=== PATIENT | male | born 1960 | race Caucasian/White ===

== ENCOUNTER 2023-06-26 09:26 | Emergency (ER) | payer MEDICARE, SELFPAY ==
[2023-06-26 09:31] VITALS: BP 152/106; PULSE 82; RESP 17; TEMP 36.4; O2SAT 98; BMI 29.3
--- NOTE | 2023-06-26 09:42 | ECG_ITS ---
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
--- NOTE | 2023-06-26 09:45 | ED.GENADUL1 ---
HPI - General Adult General Chief complaint: Urogenital-Male Stated complaint: BLOOD IN URINE Time Seen by Provider: 06/26/23 09:27 Source: patient Mode of arrival: walk-in Limitations: no limitations History of Present Illness HPI narrative: 63-year-old male presents to the Emergency Department for discoloration of urine. He has an empty feeling in his abdomen and right now doesn't have pain but he has had some pressure. His eyes were noted to be yellow. He drinks three beers on Sundays and one beer every other day. He used to drink heavily, about fifteen years ago. no fever or cough but he's been feeling weak. He does not complain of flank pain. Related Data Allergies Allergy/AdvReac Type Severity Reaction Status Date / Time shellfish derived AdvReac Severe Anaphylaxis Verified 06/26/23 09:44 Review of Systems ROS Narrative A ten point review of systems is negative except as noted above. PFSH PFSH Social History Smoking status: Current every day smoker Exam Narrative Exam Narrative: Nurses note and vital signs reviewed and patient is not hypoxic. General: The patient appears well and in no apparent distress. Patient is resting comfortably on cart. Skin: Warm, dry, no pallor noted. There is no rash noted. Head: Normocephalic, atraumatic Eye: scleral icterus present, no drainage Ears, Nose, Mouth, and Throat: oral mucosa is moist. Nares patent. Cardiovascular: Regular Rate and Rhythm Respiratory: Patient is in no distress, no accessory muscle use, lungs are clear to auscultation, no wheezing, rales or rhonchi Back: non-tender, no CVA tenderness bilaterally to percussion. GI: no tenderness to palpation, no masses appreciated. No rebound, guarding, or rigidity noted. globoid shape Musculoskeletal: The patient has no evidence of calf tenderness, no pitting edema, symmetrical pulses noted bilaterally Neurological: A&O, normal speech Psychiatric: Cooperative Constitutional Vital Signs, click to edit/add: Last Vital Signs Temp 97.6 F 06/26/23 09:31 Pulse 68 06/26/23 16:31 Resp 20 06/26/23 16:31 BP 130/72 06/26/23 16:31 Pulse Ox 98 06/26/23 16:31 O2 Del Method Room Air 06/26/23 10:26 Course Vital Signs Vital signs: Vital Signs Temperature 97.6 F 06/26/23 09:31 Pulse Rate 82 06/26/23 09:31 Respiratory Rate 17 06/26/23 09:31 Blood Pressure 152/106 H 06/26/23 09:31 Pulse Oximetry 98 06/26/23 09:31 Oxygen Delivery Method Room Air 06/26/23 09:31 Temperature 97.6 F 06/26/23 09:31 Pulse Rate 68 06/26/23 16:31 Respiratory Rate 20 06/26/23 16:31 Blood Pressure 130/72 06/26/23 16:31 Pulse Oximetry 98 06/26/23 16:31 Oxygen Delivery Method Room Air 06/26/23 10:26 Medical Decision Making MDM Narrative Medical decision making narrative: Amylase, lipase, and LFTs are elevated. Gallbladder ultrasound shows enlarged common bile duct of 9.2 mm. Gallbladder wall is slightly thickened and gallbladder is enlarged. He was given IV Invanz. I discussed the case with surgeon business operations manager who requests that the patient be transferred to facility but has the capability of ERCP. I've spoken to Jasmine, nurse practitioner for Dr. Peralta, as well as Dr. Rosario, hospitalist. They accept the patient and he stable and agreeable for transfer. Treatment diagnosis and disposition were discussed with the patient and his sister. Differential Diagnosis Differential Diagnosis: pancreatitis, hepatitis, acute cholecystitis, choledocholithiasis. Lab Data Lab results reviewed: Yes I reviewed the patient's lab results Labs: Lab Results 06/26/23 06/26/23 Range/Units 09:37 09:45 WBC 12.9 H (4.0-11.0) 10^3/uL RBC 4.66 L (4.70-6.10) 10^6/uL Hgb 14.3 (14.0-18.0) g/dL Hct 41.2 L (42.0-54.0) % MCV 88.4 (80.0-94.0) fL MCH 30.7 (25.9-34.0) pg MCHC 34.7 (29.9-35.2) g/dL RDW 14.9 (11.0-15.0) % Plt Count 490 H (150-450) 10^3/uL MPV 10.1 (9.5-13.5) fL Neut % (Auto) 72.6 (43.0-75.0) % Lymph % (Auto) 10.4 L (20.5-60.0) % [place] % (Auto) 8.4 (1.7-12.0) % Eos % (Auto) 6.5 (0.9-7.0) % Baso % (Auto) 1.2 (0.2-2.0) % Neut # (Auto) 9.4 H (1.4-6.5) 10^3/uL Lymph # (Auto) 1.3 (1.2-3.8) 10^3/uL [place] # (Auto) 1.1 H (0.3-0.8) 10^3/uL Eos # (Auto) 0.8 H (0.0-0.7) 10^3/uL Baso # (Auto) 0.2 H (0.0-0.1) 10^3/uL Abs Immat Gran (auto) 0.12 H (0.00-0.03) 10^3/uL Imm/Tot Granulo (auto) 0.9 H (0.0-0.5) % Sodium 133 L (136-145) mmol/L Potassium 3.6 (3.5-5.1) mmol/L Chloride 99 (98-107) mmol/L Carbon Dioxide 26.0 (21.0-32.0) mmol/L Anion Gap 11.6 BUN 15.0 (7.0-18.0) mg/dL Creatinine 0.91 (0.70-1.30) mg/dL Est GFR ( Amer) >60 (>=60) Est GFR (Non-Af Amer) >60 (>=60) BUN/Creatinine Ratio 16.5 Glucose 109 H (74-106) mg/dL Calcium 8.9 (8.5-10.1) mg/dL Total Bilirubin 12.4 H (0.2-1.0) mg/dL Direct Bilirubin 10.3 H* (0.0-0.2) mg/dL AST 287 H (15-37) U/L ALT 647 H* (16-63) U/L Alkaline Phosphatase 710 H (46-116) U/L Total Protein 6.8 (6.4-8.2) g/dL Albumin 3.0 L (3.4-5.0) g/dL Globulin 3.8 g/dL Albumin/Globulin Ratio 0.8 Amylase 200 H (25-115) U/L Lipase 556.0 H (16.0-77.0) U/L Urine Color Dk. orange (YELLOW) Urine Clarity Clear (CLEAR) Urine pH 6.5 (5.0-9.0) Ur Specific [place] 1.020 (1.005-1.025) Urine Protein 30 A (NEG/TRACE) mg/dL Urine Glucose (UA) 100 A (NEGATIVE) mg/dL Urine Ketones Trace A (NEGATIVE) mg/dL Urine Occult Blood Negative (NEGATIVE) Urine Nitrite Negative (NEGATIVE) Urine Bilirubin Large A (NEGATIVE) Urine Urobilinogen 1.0 (0.2-1.0) EU/dL Ur Leukocyte Esterase Negative (NEGATIVE) Urine RBC None seen (0-2) #/HPF Urine WBC 0-2 A (NONE SEEN) #/HPF Ur Squamous Epith Cells Rare (NONE/RARE) #/LPF Urine Crystals None seen (None Seen) #/HPF Urine Bacteria None seen (NONE SEEN) #/HPF Urine Casts None seen (NONE SEEN) #/LPF Urine Mucus Trace A (NONE SEEN) Imaging Data gallbladder ultrasound, CT abdomen: Radiologist's impression: Procedure: US right upper quadrant EXAM: US right upper quadrant HISTORY: elevated LFTs, elevated amylase and lipase, abn CT COMPARISON: None. TECHNIQUE: Grayscale, color and Doppler FINDINGS: The liver is normal in size, contour and echotexture. No focal mass. Hepatopedal flow in the main portal vein The gallbladder wall is borderline thickened measuring 3 mm. Moderate dilation of the bladder which measures 12.1 cm in length. Negative sonographic Melissa sign. Echogenic material within the gallbladder likely sludge. The common bile duct is enlarged measuring 9.2 mm. No definite obstruction within the common bile duct The visualized pancreas is normal The right kidney is normal measuring 11.3 x 5.7 x 5.0 cm IMPRESSION: Distended gallbladder with a borderline thickened wall and underlying sludge. Consider cholecystitis Electronically authenticated by: JOSE GUADALUPE LEON Date: 06/26/2023 11:56 Procedure: CT abdomen pelvis wo con EXAM: CT abdomen pelvis wo con HISTORY: jaundiced, abd pain COMPARISON: None. TECHNIQUE: Axial soft tissue windows of the abdomen and pelvis with coronal and sagittal reformats. CT dose reduction technique was used including Automated Exposure Control. Findings: Lack of intravenous contrast limits evaluation. ABDOMEN: The liver, spleen, and adrenal glands are unremarkable. There is subtle stranding of the fat adjacent to the uncinate process of the pancreas and third portion of the duodenum. The gallbladder is distended. No CT evidence of gallstones. Mild nonspecific bilateral perinephric fat stranding. No renal stones or collecting system dilatation. The visualized portions of the bilateral ureters are nondilated. Evaluation of the bowel is limited given the absence of oral contrast. No bowel obstruction. The appendix is nondilated. The aorta is normal caliber. Mild atherosclerotic disease. No enlarged abdominal lymph nodes or free abdominal fluid. Small to moderate sized fat-containing umbilicus hernia. Pelvis: The bladder is unremarkable. The prostate is not significantly enlarged. No enlarged pelvic lymph nodes or free pelvic fluid. Small fat-containing bilateral inguinal hernias. No aggressive sclerotic or lytic osseous lesions. Mild multilevel degenerative spondylosis. IMPRESSION: 1. There is subtle stranding in the fat adjacent to the uncinate process of the pancreas and third portion of the duodenum which may relate to acute pancreatitis or duodenitis. 2. Distended gallbladder. No CT evidence of gallstones. If indicated, this could be further evaluated with right upper quadrant ultrasound. 3. Other nonemergent findings, as described above. Electronically authenticated by: KIP FLAHERTY Date: 06/26/2023 10:37 Discharge Plan Discharge Chief Complaint: Urogenital-Male Clinical Impression: Choledocholithiasis with acute cholecystitis Patient Disposition: [facility] Time of Disposition Decision: 17:32 Discharge Location: [facility] [address] Condition: Fair Mode of Transportation: EMS
[2023-06-26 09:50] LABS: Bilirubin Urine LARGE (NEGATIVE); Blood Urine NEGATIVE (NEGATIVE); Clarity Urine CLEAR (CLEAR); Color Urine DK. ORANGE (YELLOW); Glucose Urine UA 100 mg/dL (NEGATIVE); Ketones Urine TRACE mg/dL (NEGATIVE); Leukocyte Esterase Urine NEGATIVE (NEGATIVE); Nitrite Urine NEGATIVE (NEGATIVE); Protein Urine 30 mg/dL (NEG/TRACE); pH Urine 6.5 (5.0-9.0)
[2023-06-26 09:57] LABS: Bacteria Urine NONE SEEN #/HPF (NONE SEEN); Crystals Seen? None Seen #/HPF (None Seen); Mucus Urine TRACE (NONE SEEN); RBC Urine NONE SEEN #/HPF (0-2); Squamous Epithelial Cell Urine RARE #/LPF (NONE/RARE); WBC Urine 0-2 #/HPF (NONE SEEN)
[2023-06-26 09:58] LABS: Cast Seen? NONE SEEN #/LPF (NONE SEEN)
--- NOTE | 2023-06-26 10:10 | CT_ITS ---
The [address] [address] Patient Name: ROGER VALERO MRN: [id number] date: 1960 Sex: M Assigned Patient Location: ED.MAIN Current Patient Location: ER Accession/Order Number: [id number] Exam Date: 06/26/2023 10:04 Report Date: 06/26/2023 10:37 At the request of: WILNER BOB Procedure: CT abdomen pelvis wo con EXAM: CT abdomen pelvis wo con HISTORY: jaundiced, abd pain COMPARISON: None. TECHNIQUE: Axial soft tissue windows of the abdomen and pelvis with coronal and sagittal reformats. CT dose reduction technique was used including Automated Exposure Control. Findings: Lack of intravenous contrast limits evaluation. ABDOMEN: The liver, spleen, and adrenal glands are unremarkable. There is subtle stranding of the fat adjacent to the uncinate process of the pancreas and third portion of the duodenum. The gallbladder is distended. No CT evidence of gallstones. Mild nonspecific bilateral perinephric fat stranding. No renal stones or collecting system dilatation. The visualized portions of the bilateral ureters are nondilated. Evaluation of the bowel is limited given the absence of oral contrast. No bowel obstruction. The appendix is nondilated. The aorta is normal caliber. Mild atherosclerotic disease. No enlarged abdominal lymph nodes or free abdominal fluid. Small to moderate sized fat-containing umbilicus hernia. Pelvis: The bladder is unremarkable. The prostate is not significantly enlarged. No enlarged pelvic lymph nodes or free pelvic fluid. Small fat-containing bilateral inguinal hernias. No aggressive sclerotic or lytic osseous lesions. Mild multilevel degenerative spondylosis. CT/CT abdomen pelvis wo con IMPRESSION: 1. There is subtle stranding in the fat adjacent to the uncinate process of the pancreas and third portion of the duodenum which may relate to acute pancreatitis or duodenitis. 2. Distended gallbladder. No CT evidence of gallstones. If indicated, this could be further evaluated with right upper quadrant ultrasound. 3. Other nonemergent findings, as described above. Electronically authenticated by: KIP FLAHERTY Date: 06/26/2023 10:37
--- NOTE | 2023-06-26 10:14 | XR_ITS ---
The [address] [address] Patient Name: ROGER VALERO MRN: [id number] date: 1960 Sex: M Assigned Patient Location: ED.MAIN Current Patient Location: ER Accession/Order Number: [id number] Exam Date: 06/26/2023 10:10 Report Date: 06/26/2023 10:27 At the request of: WILNER BOB Procedure: XR chest 1V EXAM: XR chest 1V HISTORY: . weak . COMPARISON: None. TECHNIQUE: Single view of the chest FINDINGS: Heart and vascularity are unremarkable. Lungs are free of focal infiltrates. EKG leads overlie the chest. XR/XR chest 1V IMPRESSION: No acute heart or lung disease identified. Electronically authenticated by: JOSE GUADALUPE PHIPPS Date: 06/26/2023 10:27
[2023-06-26 10:26] VITALS: BP 142/78; PULSE 66; RESP 18; O2SAT 98
[2023-06-26 10:27] LABS: Basophils Absolute Auto 0.2 10^3/uL (0.0-0.1); Basophils Percent Auto 1.2 % (0.2-2.0); Eosinophils Absolute Auto 0.8 10^3/uL (0.0-0.7); Eosinophils Percent Auto 6.5 % (0.9-7.0); Hematocrit 41.2 % (42.0-54.0); Hemoglobin 14.3 g/dL (14.0-18.0); Immature Granulocytes Abs Auto 0.12 10^3/uL (0.00-0.03); Immature Granulocytes Pct Auto 0.9 % (0.0-0.5); Lymphocytes Absolute Auto 1.3 10^3/uL (1.2-3.8); Lymphocytes Percent Auto 10.4 % (20.5-60.0); Mean Corpuscular HGB Conc 34.7 g/dL (29.9-35.2); Mean Corpuscular Hemoglobin 30.7 pg (25.9-34.0); Mean Corpuscular Volume 88.4 fL (80.0-94.0); Mean Platelet Volume 10.1 fL (9.5-13.5); Monocytes Absolute Auto 1.1 10^3/uL (0.3-0.8); Monocytes Percent Auto 8.4 % (1.7-12.0); Neutrophils Absolute Auto 9.4 10^3/uL (1.4-6.5); Neutrophils Percent Auto 72.6 % (43.0-75.0); Platelet Count 490 10^3/uL (150-450); Red Blood Count 4.66 10^6/uL (4.70-6.10); Red Cell Distribution Width 14.9 % (11.0-15.0); White Blood Count 12.9 10^3/uL (4.0-11.0)
[2023-06-26 10:43] LABS: Anion Gap 11.6; BUN Creatinine Ratio 16.5; Calcium 8.9 mg/dL (8.5-10.1); Chloride 99 mmol/L (98-107); Estimated GFR (African America >60 (>=60); Estimated GFR (Non-African Ame >60 (>=60); Glucose 109 mg/dL (74-106); Potassium 3.6 mmol/L (3.5-5.1); Sodium 133 mmol/L (136-145)
[2023-06-26 10:48] LABS: Albumin Globulin Ratio 0.8; Alkaline Phosphatase 710 U/L (46-116); Amylase 200 U/L (25-115); Aspartate Amino Transferase 287 U/L (15-37); Bilirubin Total 12.4 mg/dL (0.2-1.0); Globulin 3.8 g/dL; Total Protein 6.8 g/dL (6.4-8.2)
[2023-06-26 11:01] LABS: Alanine Aminotransferase 647 U/L (16-63); Bilirubin Direct 10.3 mg/dL (0.0-0.2)
--- NOTE | 2023-06-26 11:08 | US_ITS ---
The [place] [id number] Patient Name: ROGER VALERO MRN: [id number] date: 1960 Sex: M Assigned Patient Location: ER Current Patient Location: ER Accession/Order Number: [id number] Exam Date: 06/26/2023 11:15 Report Date: 06/26/2023 11:56 At the request of: WILNER BOB Procedure: US right upper quadrant EXAM: US right upper quadrant HISTORY: elevated LFTs, elevated amylase and lipase, abn CT COMPARISON: None. TECHNIQUE: Grayscale, color and Doppler FINDINGS: The liver is normal in size, contour and echotexture. No focal mass. Hepatopedal flow in the main portal vein The gallbladder wall is borderline thickened measuring 3 mm. Moderate dilation of the bladder which measures 12.1 cm in length. Negative sonographic Melissa sign. Echogenic material within the gallbladder likely sludge. The common bile duct is enlarged measuring 9.2 mm. No definite obstruction within the common bile duct The visualized pancreas is normal The right kidney is normal measuring 11.3 x 5.7 x 5.0 cm US/US right upper quadrant IMPRESSION: Distended gallbladder with a borderline thickened wall and underlying sludge. Consider cholecystitis Electronically authenticated by: JOSE GUADALUPE LEON Date: 06/26/2023 11:56
[2023-06-26 11:11] VITALS: BP 138/74; PULSE 72; RESP 20; O2SAT 98
--- NOTE | 2023-06-26 11:19 | PC.NURSE ---
Patient updated by Dr. Rome on results and of scheduled ultra sound. Patient made aware to not have anything to eat or drink as US results pending, patient voices concern.
[2023-06-26] MEDS: ERTAPENEM SODIUM 1 GM in 0.9 % SODIUM CHLORIDE 50 ML IV (13:06)
[2023-06-26 13:11] VITALS: BP 134/78; PULSE 72; RESP 20; O2SAT 98
[2023-06-26 16:31] VITALS: BP 130/72; PULSE 68; RESP 20; O2SAT 98
--- NOTE | 2023-06-26 19:14 | PC.NURSE ---
Report called to nurse Gunn at [facility]. Patient leaves at this time via [facility]
== END 2023-06-26 19:15 | disposition short-term general hospital (02) ==
PROVIDERS: Emergency Provider Emergency Medicine
DX: K80.42 Calculus of bile duct with acute cholecystitis without obstruction (principal); F17.210 Nicotine dependence, cigarettes, uncomplicated
CPT/HCPCS: 36415; 71045; 74176; 76705; 80048; 80076; 81001; 82150; 83690; 85025; 87086; 93005; 96365; 99285; J1335